=== PATIENT | male | born 1950 | race Two or more races ===

== ENCOUNTER 2017-12-25 18:22 | Emergency (ER) | payer BC, OTHER ==
[~2017-12-25] VITALS: Ht 172.7 cm; Wt 81.6 kg
[2017-12-25 20:27] LABS: Hemoglobin 8.5 g/dL (13.5-17.5); Lymphocytes # (auto) 1.7 uL; Monocytes # (auto) 1.2 uL; Neutrophils % (auto) 80.5 % (37.0-80.0); Red Cell Distribution Width 14.4 % (11.8-14.3)
[2017-12-25 20:30] LABS: Basophils # (auto) 0.1 uL; Basophils % (auto) 0.4 % (0.0-2.0); Eosinophils # (auto) 0 uL; Eosinophils % (auto) 0.3 % (0.0-7.0); Hematocrit 26.3 % (41.0-53.0); Lymphocytes % (auto) 11.1 % (10.0-50.0); Mean Corpuscular Hemoglobin 27.9 pg (28.0-32.0); Mean Corpuscular Hgb Conc. 32.4 g/dL (32.0-36.0); Mean Corpuscular Volume 86.2 fL (80.0-100.0); Monocytes % (auto) 7.7 % (0.0-12.0); Neutrophils # (auto) 12.3 uL; Platelet Count (auto) 531 10^3/uL (140-450); Red Blood Cells 3.05 10^6/uL (4.5-5.90); White Blood Cell 15.2 10^3/uL (4.4-10.8)
[2017-12-25 20:47] LABS: Alanine Aminotransferase 16 U/L (16-61); Anion Gap 11 (5-15); Aspartate Aminotransferase 21 U/L (15-37); BUN/Creatinine Ratio 18.7; Blood Urea Nitrogen 38 mg/dL (7-18); Calcium 8.8 mg/dL (8.5-10.1); Carbon Dioxide 24 mmol/L (21-32); Chloride 99 mmol/L (98-107); GFR African American 42 mL/min; GFR Non-African American 35 mL/min; Glucose 154 mg/dL (74-106); INR 1.1 (0.9-1.15); Partial Thromboplastin Time 32.9 sec (22.64-33.71); Sodium 134 mmol/L (136-145)
[2017-12-25 20:51] LABS: Amylase 37 U/L (25-115); Lipase 129 U/L (73-393)
[2017-12-25 20:52] LABS: Alkaline Phosphatase 282 U/L (45-117); Bilirubin, Total 0.5 mg/dL (0.2-1.0); Total Protein 9.2 g/dL (6.4-8.2)
[2017-12-26] MEDS ORDERED: ONDANSETRON HCL 4 MG/2 ML VIAL IV ONE
[2017-12-26 02:53] VITALS: BP 135/81
[2017-12-26] MEDS ORDERED: MEPERIDINE HCL (25 MG/ML) 1ML VIAL IV ONE ×2 (03:00)
== END 2017-12-26 03:23 | disposition home or self-care (01) ==
LOC: EDBD 18:22 → ER 18:26
DX: C48.1 Malignant neoplasm of specified parts of peritoneum (principal); E11.9 Type 2 diabetes mellitus without complications; Z90.49 Acquired absence of other specified parts of digestive tract
CPT/HCPCS: 36415; 74176; 80053; 82150; 83690; 84484; 85025; 85610; 85730; 93005; 96374; 96375; 96376; 99285; J2175; J2405

== ENCOUNTER 2023-02-27 06:17 | Day surgery (SDC) | payer OTHER ==
[~2023-02-27] VITALS: Ht 172.7 cm; Wt 77.1 kg
[~2023-02-27 06:17] MED LIST: ASPI-543 PO; AUG875T PO; INSU1.2I SC; LISI20TA56 PO; METH2.5T PO
[2023-02-27] MEDS ORDERED: SUCCINYLCHOLINE CHLORIDE 20 MG/ML 10ML VIAL IV ONE (06:51)
[2023-02-27] MEDS ORDERED: ROCURONIUM 10MG/ML 10ML VIAL IV ONE (06:51)
[2023-02-27] MEDS ORDERED: ceFAZolin 1GM/50ML 100 ML IV ONE (06:56)
[2023-02-27] MEDS ORDERED: PROPOFOL 10 MG/ML 20 ML IV ONE (07:09)
[2023-02-27] MEDS ORDERED: fentaNYL CITRATE 100 MCG/2 ML VL ONE (07:09)
[2023-02-27] MEDS ORDERED: MIDAZOLAM HCL 2MG/2ML 2ml VIAL (1mg/ml) ONE (07:09)
[2023-02-27] MEDS ORDERED: ONDANSETRON HCL 4 MG/2 ML VIAL ONE (07:09)
[2023-02-27] MEDS ORDERED: DexAMETHasone SOD PHOS 10MG/1ML VIAL INJ ONE (07:09)
[2023-02-27] MEDS ORDERED: SODIUM CHLORIDE LOCK 10 ML ONE (07:09)
[2023-02-27] MEDS ORDERED: ACCU-CHEK COMFORT CURVE STRIP VI ONE (07:15)
[2023-02-27] MEDS ORDERED: METOCLOPRAMIDE HCL 5MG/ml INJ 2ml VIAL IV PRN (07:15)
[2023-02-27] MEDS ORDERED: HYDROmorphone HCL 2 MG/ML VL/or syr IV PRN ×2 (07:15)
[2023-02-27] MEDS ORDERED: MORPHINE SULFATE INJ 2 MG/ml SYRG IV PRN (07:15)
[2023-02-27 09:30] VITALS: BP 146/72
== END 2023-02-27 09:40 | disposition home or self-care (01) ==
LOC: SUR 06:17
PROVIDERS: ATTEND Urology
DX: N40.1 Benign prostatic hyperplasia with lower urinary tract symptoms (principal); N30.10 Interstitial cystitis (chronic) without hematuria; I12.9 Hypertensive chronic kidney disease with stage 1 through stage 4 chronic kidney disease, or unspecified chronic kidney disease; E11.22 Type 2 diabetes mellitus with diabetic chronic kidney disease; N18.30 Chronic kidney disease, stage 3 unspecified; I72.9 Aneurysm of unspecified site; G62.9 Polyneuropathy, unspecified; Z90.49 Acquired absence of other specified parts of digestive tract; Z79.4 Long term (current) use of insulin; Z79.82 Long term (current) use of aspirin; Z79.899 Other long term (current) drug therapy; Z98.890 Other specified postprocedural states
CPT/HCPCS: 52224; 82962; 88305; 88342; J0330; J0690; J1100; J2250; J2405; J2704; J3010; J7030

== ENCOUNTER 2024-02-23 08:25 | Inpatient (IN) | payer OTHER ==
[~2024-02-23] VITALS: Ht 172.7 cm; Wt 70.9 kg
[2024-02-23 09:58] VITALS: PULSE 80; RESP 15; O2SAT 95
[2024-02-23 09:59] LABS: Urine Bacteria FEW /hpf (None Seen); Urine Blood Negative /uL (Negative); Urine Budding Yeast MODERATE /hpf (None Seen); Urine Clarity Turbid (Clear); Urine Color Colorless (Yellow); Urine Mucus FEW (None Seen); Urine Protein, UAD Negative (Negative); Urine Specific Gravity 1.015 (1.001-1.035); Urine Urobilinogen Normal (Negative); Urine WBC 130 /hpf (0 - 3); Urine WBC Clumps PRESENT /hpf (None Seen); Urine pH 6.5 (5.0-9.0)
[2024-02-23 10:29] LABS: Basophils # (auto) 0 10 ^3/uL (0-0.2); Basophils % (auto) 0.5 % (0.0-2.0); Eosinophils # (auto) 0 10 ^3/uL (0-0.8); Eosinophils % (auto) 0.4 % (0.0-7.0); Hemoglobin 12.4 g/dL (13.5-17.5); Lymphocytes # (auto) 0.6 10 ^3/uL (0.4-5.4); Lymphocytes % (auto) 8.8 % (10.0-50.0); Mean Corpuscular Hemoglobin 32.9 pg (28.0-32.0); Mean Corpuscular Hgb Conc. 33.6 g/dL (32.0-36.0); Mean Corpuscular Volume 98.1 fL (80.0-100.0); Monocytes # (auto) 0.8 10 ^3/uL (0-1.3); Monocytes % (auto) 11.3 % (0.0-12.0); Neutrophils # (auto) 5.4 10 ^3/uL (1.6-8.6); Nucleated Red Blood Cells % 0.1 %; Red Blood Cells 3.77 10^6/uL (4.5-5.90); White Blood Cell 6.9 10^3/uL (4.4-10.8)
[2024-02-23] MEDS: SODIUM CHLORIDE 0.9% 1,000 ML IV ONE (11:14)
[2024-02-23 11:26] VITALS: PULSE 70; RESP 16; O2SAT 98
[2024-02-23 11:31] LABS: Platelet Estimate Decreased
[2024-02-23 12:31] LABS: Chloride 103 mmol/L (98-107); Sodium 133 mmol/L (136-145)
[2024-02-23 12:34] LABS: Anion Gap 5 (5-15); Calcium 9.3 mg/dL (8.5-10.1); Carbon Dioxide 25 mmol/L (20-30)
[2024-02-23 12:39] LABS: Alkaline Phosphatase 104 U/L (46-116); Glucose 177 mg/dL (74-106)
[2024-02-23 12:40] LABS: Potassium 4.9 mmol/L (3.5-5.1)
[2024-02-23 12:41] LABS: Albumin 3.8 g/dL (3.2-4.8); Aspartate Aminotransferase 19 U/L (13-40); Bilirubin, Total 0.5 mg/dL (0.2-1.0); Total Protein 7.8 g/dL (5.7-8.2)
[2024-02-23 12:49] LABS: Alanine Aminotransferase 21 U/L (7-40)
[2024-02-23 12:51] LABS: Blood Urea Nitrogen 23 mg/dL (9-23)
[2024-02-23] MEDS ORDERED: ACETAMINOPHEN 325 MG TAB PO PRN (15:30)
[2024-02-23] MEDS ORDERED: HYDROcodone-ACET 5/325MG TAB PO PRN (15:30)
[2024-02-23] MEDS ORDERED: ONDANSETRON HCL 4 MG/2 ML VIAL IV PRN (15:30)
[2024-02-23] MEDS ORDERED: MORPHINE SULFATE INJ 2 MG/ml SYRG IV PRN ×2 (15:30→20:45)
[2024-02-23] MEDS ORDERED: DOCUSATE SOD 100 MG CAP PO PRN (15:30)
[2024-02-23] MEDS: SODIUM CHLORIDE 0.9% 1,000 ML IV SCH (17:13)
[2024-02-23 19:30] VITALS: PULSE 65; RESP 16; O2SAT 98
[2024-02-23] MEDS ORDERED: NITROGLYCERIN 0.4 MG SL TAB SL PRN (20:45)
[2024-02-23] MEDS: ACYCLOVIR SOD 50MG/ML 800 MG in SODIUM CHL 0.9% 250 ML IV SCH (22:00)
[2024-02-24] VITALS (8 sets, daily range): BP systolic 104–152; BP diastolic 63–91; PULSE 70–87; RESP 16–22; TEMP 79.8–98.7; O2SAT 97–100
[2024-02-24 06:38] LABS: Basophils # (auto) 0 10 ^3/uL (0-0.2); Basophils % (auto) 0.5 % (0.0-2.0); Eosinophils # (auto) 0 10 ^3/uL (0-0.8); Eosinophils % (auto) 0.5 % (0.0-7.0); Hematocrit 34.8 % (41.0-53.0); Hemoglobin 11.9 g/dL (13.5-17.5); Lymphocytes # (auto) 0.6 10 ^3/uL (0.4-5.4); Lymphocytes % (auto) 9.2 % (10.0-50.0); Mean Corpuscular Hemoglobin 33.6 pg (28.0-32.0); Mean Corpuscular Hgb Conc. 34.1 g/dL (32.0-36.0); Mean Corpuscular Volume 98.6 fL (80.0-100.0); Monocytes # (auto) 0.7 10 ^3/uL (0-1.3); Monocytes % (auto) 11.1 % (0.0-12.0); Neutrophils # (auto) 5.1 10 ^3/uL (1.6-8.6); Neutrophils % (auto) 78.7 % (37.0-80.0); Red Blood Cells 3.54 10^6/uL (4.5-5.90); Red Cell Distribution Width 15.7 % (11.8-14.3); White Blood Cell 6.5 10^3/uL (4.4-10.8)
[2024-02-24] MEDS ORDERED: PRED20TA2 PO (06:39)
[2024-02-24] MEDS ORDERED: OXYB10GE TOP (06:39)
[2024-02-24] MEDS ORDERED: ATOR20TA PO (06:39)
[2024-02-24] MEDS ORDERED: TAMS0.4C36 PO (06:39)
[2024-02-24 06:54] LABS: Alanine Aminotransferase 19 U/L (7-40); Albumin 3.3 g/dL (3.2-4.8); Alkaline Phosphatase 92 U/L (46-116); Anion Gap 7 (5-15); Aspartate Aminotransferase 17 U/L (13-40); Blood Urea Nitrogen 19 mg/dL (9-23); Calcium 9.1 mg/dL (8.7-10.4); Carbon Dioxide 29 mmol/L (20-30); Chloride 101 mmol/L (98-107); Glucose 160 mg/dL (74-106); Potassium 4.7 mmol/L (3.5-5.1); Sodium 137 mmol/L (136-145)
[2024-02-24 06:55] LABS: Bilirubin, Total 0.9 mg/dL (0.2-1.0); Total Protein 6.8 g/dL (5.7-8.2)
[2024-02-24] MEDS: cefTRIAXone 1GM/50ML D5W 50 ML IV SCH (09:00)
[2024-02-24] MEDS ORDERED: ENOXAPARIN SOD 40 MG/0.4 ML SYRINGE SC SCH (10:00)
[2024-02-24] MEDS: LACTULOSE 20Gm/30ML SOLN PO PRN (17:26)
[2024-02-24] MEDS ORDERED: DEXTROSE (50%) 50ML SYRG IV PRN (17:45)
[2024-02-24] MEDS: predniSONE 20 MG TAB PO ONE (18:20)
[2024-02-24] MEDS: ACYCLOVIR SOD 50MG/ML 800 MG in SODIUM CHL 0.9% 250 ML IV SCH (18:20)
[2024-02-24] MEDS: InsuLIN REG 1unit/0.01ml Soln (100units/ml) SC SCH (22:00)
[2024-02-24] MEDS: SENNA 8.6 MG TAB PO SCH (22:06)
[2024-02-24] MEDS: ACCU-CHEK COMFORT CURVE STRIP VI SCH (22:06)
[2024-02-25] VITALS (7 sets, daily range): BP systolic 101–139; BP diastolic 60–76; PULSE 64–91; RESP 18–20; TEMP 36.8; O2SAT 97–100
[2024-02-25] MEDS: InsuLIN REG 1unit/0.01ml Soln (100units/ml) SC SCH (06:20)
[2024-02-25] MEDS: TAMSULOSIN HYDROCHLORIDE 0.4 MG CAP PO SCH (09:25)
[2024-02-25] MEDS: predniSONE 20 MG TAB PO SCH (09:25)
[2024-02-25] MEDS: ATORVASTATIN 20 MG TAB PO SCH (09:25)
[2024-02-25] MEDS ORDERED: VALA1TAB PO (14:56)
== END 2024-02-25 18:00 | disposition home health service (06) | DRG 872 ==
LOC: ER 08:25 → EDUNIT# 08:25 → EDBD 08:25 → OVERFLOW 21:39 → WEST WING 23:39
PROVIDERS: ADMIT Nurse Practitioner Family; ATTEND Nurse Practitioner Family
DX: A41.9 Sepsis, unspecified organism (principal); G61.81 Chronic inflammatory demyelinating polyneuritis; B02.7 Disseminated zoster; N39.0 Urinary tract infection, site not specified; E11.9 Type 2 diabetes mellitus without complications; I10 Essential (primary) hypertension; K59.00 Constipation, unspecified; N28.89 Other specified disorders of kidney and ureter; R91.8 Other nonspecific abnormal finding of lung field; R63.4 Abnormal weight loss; E78.5 Hyperlipidemia, unspecified; Z74.01 Bed confinement status; Z85.528 Personal history of other malignant neoplasm of kidney; Z79.52 Long term (current) use of systemic steroids; Z68.23 Body mass index [BMI] 23.0-23.9, adult
CPT/HCPCS: 36415; 71045; 71250; 74176; 76775; 80053; 81001; 82962; 83605; 84484; 85025; 86703; 87040; 93005; 96360; G0378; J1815

== ENCOUNTER 2024-03-08 23:59 | Inpatient (IN) | payer OTHER ==
[~2024-03-08] VITALS: Ht 165.1 cm; Wt 76.5 kg
[~2024-03-08 23:59] MED LIST changes: -ASPI-543 PO; +ATOR20TA PO; -AUG875T PO; +OXYB10GE TOP; +PRED20TA2 PO; +TAMS0.4C36 PO; +VALA1TAB PO
[2024-03-09 00:15] VITALS: PULSE 80; RESP 18; O2SAT 100
[2024-03-09] MEDS: NOREPINEPHRINE 8 MG/250ML KIT 250 ML IV SCH (00:30)
[2024-03-09] MEDS: SODIUM CHLORIDE 0.9% 1,000 ML IVB ONE (00:34)
[2024-03-09 00:46] LABS: Basophils # (auto) 0 10 ^3/uL (0-0.2); Basophils % (auto) 0.1 % (0.0-2.0); Chloride 102 mmol/L (98-107); Eosinophils # (auto) 0.1 10 ^3/uL (0-0.8); Eosinophils % (auto) 0.3 % (0.0-7.0); Hematocrit 33.7 % (41.0-53.0); Hemoglobin 11.2 g/dL (13.5-17.5); Lymphocytes # (auto) 0.9 10 ^3/uL (0.4-5.4); Lymphocytes % (auto) 6.2 % (10.0-50.0); Mean Corpuscular Hemoglobin 33.1 pg (28.0-32.0); Mean Corpuscular Hgb Conc. 33.1 g/dL (32.0-36.0); Monocytes # (auto) 1.7 10 ^3/uL (0-1.3); Monocytes % (auto) 11.6 % (0.0-12.0); Neutrophils # (auto) 12.2 10 ^3/uL (1.6-8.6); Neutrophils % (auto) 81.8 % (37.0-80.0); Nucleated Red Blood Cells % 0.8 %; Potassium 5.2 mmol/L (3.5-5.1); Red Blood Cells 3.37 10^6/uL (4.5-5.90); Red Cell Distribution Width 15.8 % (11.8-14.3); Sodium 127 mmol/L (136-145)
[2024-03-09 00:47] LABS: Anion Gap 11 (5-15); Carbon Dioxide 14 mmol/L (20-30)
[2024-03-09 00:48] LABS: Calcium 8.4 mg/dL (8.7-10.4)
[2024-03-09 00:52] LABS: Glucose 189 mg/dL (74-106)
[2024-03-09 00:53] LABS: BUN/Creatinine Ratio 38.4 (10.0-20.0)
[2024-03-09 00:59] LABS: Blood Urea Nitrogen 101 mg/dL (9-23)
[2024-03-09 01:00] LABS: Lactic Acid w/Reflex 2.7 mmol/L (0.4-2.0)
[2024-03-09] MEDS: NOREPINEPHRINE 8 MG/250ML KIT 250 ML IV ONE (01:07)
[2024-03-09] MEDS: cefTRIAXone 1GM/50ML D5W 50 ML IV ONE (01:15)
[2024-03-09] MEDS: VANCOMYCIN 1GM/200ML 200 ML IV ONE (01:15)
[2024-03-09] MEDS: SODIUM CHLORIDE 0.9% 1,850 ML IV ONE (01:15)
[2024-03-09 02:37] LABS: Urine Bacteria MANY /hpf (None Seen); Urine Blood 1+ /uL (Negative); Urine Clarity Ex.Turbid (Clear); Urine Mucus FEW (None Seen); Urine Protein, UAD 1+ (Negative); Urine Specific Gravity 1.012 (1.001-1.035); Urine Urobilinogen Normal (Negative); Urine WBC 3101 /hpf (0 - 3); Urine WBC Clumps PRESENT /hpf (None Seen); Urine pH 5.5 (5.0-9.0)
[2024-03-09 02:56] LABS: Urine Color Yellow (Yellow)
[2024-03-09] MEDS ORDERED: MORPHINE SULFATE INJ 2 MG/ml SYRG IV PRN (03:30)
[2024-03-09] MEDS ORDERED: DEXTROSE (50%) 50ML SYRG IV PRN (03:30)
[2024-03-09] MEDS ORDERED: ONDANSETRON HCL 4 MG/2 ML VIAL IV PRN (03:30)
[2024-03-09] MEDS ORDERED: VANCOMYCIN PER PHARMACY 0 MG IV SCH ×2 (03:30→16:30)
[2024-03-09] MEDS: SODIUM CHLORIDE 0.9% 1,000 ML IV SCH (03:30)
[2024-03-09] MEDS ORDERED: NITROGLYCERIN 0.4 MG SL TAB SL PRN (03:30)
[2024-03-09] MEDS: SODIUM CHLORIDE 0.9% 1,000 ML IV ONE (04:15)
[2024-03-09] MEDS: ACCU-CHEK COMFORT CURVE STRIP VI SCH (06:18)
[2024-03-09] MEDS: InsuLIN REG 1unit/0.01ml Soln (100units/ml) SC SCH (06:22)
[2024-03-09 06:40] LABS: Chloride 108 mmol/L (98-107); Potassium 5.2 mmol/L (3.5-5.1); Sodium 130 mmol/L (136-145)
[2024-03-09 06:42] LABS: Anion Gap 11 (5-15); BUN/Creatinine Ratio 36.8 (10.0-20.0); Carbon Dioxide 11 mmol/L (20-30); Glucose 236 mg/dL (74-106)
[2024-03-09 06:43] LABS: Calcium 7.8 mg/dL (8.5-10.1)
[2024-03-09 06:46] LABS: Blood Urea Nitrogen 89 mg/dL (9-23)
[2024-03-09 07:04] LABS: Hematocrit 38.7 % (41.0-53.0); Hemoglobin 11.8 g/dL (13.5-17.5); Mean Corpuscular Hemoglobin 32.5 pg (28.0-32.0); Mean Corpuscular Hgb Conc. 30.6 g/dL (32.0-36.0); Mean Corpuscular Volume 106.3 fL (80.0-100.0); Red Blood Cells 3.64 10^6/uL (4.5-5.90); Red Cell Distribution Width 16.8 % (11.8-14.3); White Blood Cell 26.7 10^3/uL (4.4-10.8)
[2024-03-09 07:15] LABS: Basophils % (manual) 0 (0.0-2.0); Blast Cells 0; Eosinophils % (manual) 0 (0-7); Metamyelocytes % 0; Myelocytes % 0; Promyelocytes % 0; Reactive Lymphocytes 0
[2024-03-09 07:28] VITALS: PULSE 85; RESP 15; O2SAT 100
[2024-03-09 09:32] LABS: Band Neutrophils % (manual) 7; Lymphocytes % (manual) 2 (10.0-50.0); Monocytes % (manual) 3 (0-12); Platelet Estimate Adequate
[2024-03-09] MEDS: PANTOPRAZOLE 40 MG/10 ML VIAL INJ IV SCH (09:55)
[2024-03-09] MEDS: SODIUM BICARB 50mEq/50ml Vial 50 ML in SOD CHL 0.45% 1,000 ML IV SCH (10:29)
[2024-03-09] MEDS: CEFEPIME 2GM/50ML NS 50 ML IV SCH (18:30)
[2024-03-09 19:40] VITALS: PULSE 85; RESP 22; O2SAT 100
[2024-03-09] MEDS ORDERED: cefTRIAXone 1GM/50ML D5W 50 ML IV SCH (21:00)
[2024-03-10 05:11] LABS: Basophils # (auto) 0 10 ^3/uL (0-0.2); Basophils % (auto) 0.1 % (0.0-2.0); Eosinophils # (auto) 0 10 ^3/uL (0-0.8); Eosinophils % (auto) 0.1 % (0.0-7.0); Hematocrit 34.4 % (41.0-53.0); Hemoglobin 11.4 g/dL (13.5-17.5); Lymphocytes # (auto) 0.7 10 ^3/uL (0.4-5.4); Lymphocytes % (auto) 4.8 % (10.0-50.0); Mean Corpuscular Hemoglobin 32.8 pg (28.0-32.0); Mean Corpuscular Volume 99.2 fL (80.0-100.0); Monocytes # (auto) 1.7 10 ^3/uL (0-1.3); Monocytes % (auto) 12.2 % (0.0-12.0); Neutrophils # (auto) 11.7 10 ^3/uL (1.6-8.6); Neutrophils % (auto) 82.8 % (37.0-80.0); Nucleated Red Blood Cells % 0.2 %; Red Blood Cells 3.47 10^6/uL (4.5-5.90); Red Cell Distribution Width 15.8 % (11.8-14.3); White Blood Cell 14.1 10^3/uL (4.4-10.8)
[2024-03-10 05:19] LABS: Chloride 115 mmol/L (98-107); Potassium 4.4 mmol/L (3.5-5.1); Sodium 141 mmol/L (136-145)
[2024-03-10 05:20] LABS: Anion Gap 8 (5-15); Carbon Dioxide 18 mmol/L (20-30)
[2024-03-10 05:25] LABS: BUN/Creatinine Ratio 59.9 (10.0-20.0); Glucose 169 mg/dL (74-106)
[2024-03-10 05:27] LABS: Blood Urea Nitrogen 97 mg/dL (9-23)
[2024-03-10 08:24] LABS: INR 1.22 (0.9-1.15); Partial Thromboplastin Time 32.5 SEC (24.5-34.5); Prothrombin Time 12.7 sec (9.3-11.8)
[2024-03-10 08:38] VITALS: PULSE 84; RESP 16; O2SAT 100
[2024-03-10] MEDS ORDERED: IMMU4INJ SC (11:02)
[2024-03-10] MEDS ORDERED: LISI-707 PO (11:02)
[2024-03-10] MEDS ORDERED: MIRT1TAB38 PO (11:02)
[2024-03-10] MEDS ORDERED: OXYB5TAB14 PO (11:02)
[2024-03-10 11:31] LABS: Magnesium 2.3 mg/dL (1.6-2.6)
[2024-03-10 11:32] LABS: Phosphorus 3.5 mg/dL (2.4-5.1)
[2024-03-10] MEDS: VANCOMYCIN 1GM/200ML 200 ML IV ONE (12:08)
[2024-03-10 15:25] LABS: Protein, Urine 36.6 mg/dL (0.0-11.9)
[2024-03-10 15:27] LABS: Creatinine, Urine 21.16 mg/dL (30.0-125.0)
[2024-03-10 20:43] VITALS: PULSE 77; RESP 13; O2SAT 99
[2024-03-11 03:11] LABS: Basophils # (auto) 0 10 ^3/uL (0-0.2); Basophils % (auto) 0.1 % (0.0-2.0); Eosinophils # (auto) 0.1 10 ^3/uL (0-0.8); Eosinophils % (auto) 0.7 % (0.0-7.0); Hematocrit 31.4 % (41.0-53.0); Hemoglobin 10.5 g/dL (13.5-17.5); Lymphocytes # (auto) 0.9 10 ^3/uL (0.4-5.4); Lymphocytes % (auto) 8.6 % (10.0-50.0); Mean Corpuscular Hemoglobin 33.2 pg (28.0-32.0); Mean Corpuscular Hgb Conc. 33.6 g/dL (32.0-36.0); Mean Corpuscular Volume 99.1 fL (80.0-100.0); Monocytes # (auto) 1.3 10 ^3/uL (0-1.3); Monocytes % (auto) 12.6 % (0.0-12.0); Neutrophils # (auto) 8.1 10 ^3/uL (1.6-8.6); Red Blood Cells 3.17 10^6/uL (4.5-5.90); Red Cell Distribution Width 16.2 % (11.8-14.3); White Blood Cell 10.4 10^3/uL (4.4-10.8)
[2024-03-11 03:32] LABS: Alanine Aminotransferase 22 U/L (7-40); Albumin 2.4 g/dL (3.2-4.8); Alkaline Phosphatase 127 U/L (46-116); Anion Gap 7 (5-15); Aspartate Aminotransferase 26 U/L (13-40); BUN/Creatinine Ratio 42.9 (10.0-20.0); Bilirubin, Total 0.6 mg/dL (0.2-1.0); Calcium 8.3 mg/dL (8.7-10.4); Carbon Dioxide 21 mmol/L (20-30); Chloride 114 mmol/L (98-107); Glucose 168 mg/dL (74-106); Potassium 3.9 mmol/L (3.5-5.1); Sodium 142 mmol/L (136-145); Total Protein 5.2 g/dL (5.7-8.2)
[2024-03-11 03:34] LABS: Blood Urea Nitrogen 42 mg/dL (9-23)
[2024-03-11] MEDS: SODIUM BICARB 8.4% 50Meq/50ml SYR Vial IV ONE (05:00)
[2024-03-11 07:30] VITALS: PULSE 64; RESP 14; O2SAT 99
[2024-03-11 09:03] LABS: Hepatitis B Surface Antigen Negative (Negative)
[2024-03-11 09:25] LABS: Hepatitis C Antibody Negative (Negative)
[2024-03-11] MEDS: VANCOMYCIN 1GM/200ML 200 ML IV ONE (10:10)
[2024-03-11] MEDS ORDERED: VANCOMYCIN 750mg/150ml 150 ML IV SCH (13:45)
[2024-03-11] MEDS ORDERED: ENOXAPARIN SOD 100 MG/1 ML SYRINGE SC SCH (15:00)
[2024-03-11] MEDS: HEPARIN DRIP/D5W 100UNITS/ML 250 ML IV SCH (17:43)
[2024-03-11 17:47] LABS: INR 1.13 (0.9-1.15); Partial Thromboplastin Time 31.8 SEC (24.5-34.5); Prothrombin Time 11.9 sec (9.3-11.8)
[2024-03-11 18:05] LABS: Basophils # (auto) 0 10 ^3/uL (0-0.2); Basophils % (auto) 0.1 % (0.0-2.0); Eosinophils # (auto) 0.1 10 ^3/uL (0-0.8); Eosinophils % (auto) 1.1 % (0.0-7.0); Hematocrit 33.5 % (41.0-53.0); Hemoglobin 11.1 g/dL (13.5-17.5); Lymphocytes % (auto) 9.3 % (10.0-50.0); Mean Corpuscular Hemoglobin 32.4 pg (28.0-32.0); Mean Corpuscular Hgb Conc. 33.1 g/dL (32.0-36.0); Mean Corpuscular Volume 97.9 fL (80.0-100.0); Monocytes # (auto) 1.2 10 ^3/uL (0-1.3); Neutrophils # (auto) 8.6 10 ^3/uL (1.6-8.6); Neutrophils % (auto) 78.5 % (37.0-80.0); Nucleated Red Blood Cells % 0.2 %; Red Blood Cells 3.42 10^6/uL (4.5-5.90); Red Cell Distribution Width 16.2 % (11.8-14.3); White Blood Cell 10.9 10^3/uL (4.4-10.8)
[2024-03-11 19:30] VITALS: PULSE 80; RESP 14; O2SAT 99
[2024-03-11 21:09] LABS: INR 1.14 (0.9-1.15); Partial Thromboplastin Time 31.9 SEC (24.5-34.5)
[2024-03-11] MEDS: VANCOMYCIN 750mg/150ml 150 ML IV SCH (22:00)
[2024-03-11] MEDS: ATORVASTATIN 20 MG TAB PO SCH (22:14)
[2024-03-11] MEDS: CEFEPIME 2GM/50ML NS 50 ML IV SCH (22:14)
[2024-03-12 00:01] LABS: INR 1.18 (0.9-1.15); Partial Thromboplastin Time 55.6 SEC (24.5-34.5); Prothrombin Time 12.4 sec (9.3-11.8)
[2024-03-12] MEDS: MELATONIN 5 MG TAB PO ONE (02:12)
[2024-03-12 04:04] LABS: Basophils # (auto) 0 10 ^3/uL (0-0.2); Basophils % (auto) 0.3 % (0.0-2.0); Eosinophils # (auto) 0.2 10 ^3/uL (0-0.8); Eosinophils % (auto) 2.1 % (0.0-7.0); Hematocrit 31.1 % (41.0-53.0); Hemoglobin 10.5 g/dL (13.5-17.5); Lymphocytes # (auto) 1.4 10 ^3/uL (0.4-5.4); Lymphocytes % (auto) 13.2 % (10.0-50.0); Mean Corpuscular Hemoglobin 33.1 pg (28.0-32.0); Mean Corpuscular Hgb Conc. 33.7 g/dL (32.0-36.0); Mean Corpuscular Volume 98.3 fL (80.0-100.0); Monocytes # (auto) 1.4 10 ^3/uL (0-1.3); Neutrophils # (auto) 7.8 10 ^3/uL (1.6-8.6); Neutrophils % (auto) 71.4 % (37.0-80.0); Red Blood Cells 3.16 10^6/uL (4.5-5.90); White Blood Cell 10.9 10^3/uL (4.4-10.8)
[2024-03-12 04:16] LABS: Alanine Aminotransferase 23 U/L (7-40); Albumin 2.2 g/dL (3.2-4.8); Alkaline Phosphatase 109 U/L (46-116); Anion Gap 3 (5-15); Aspartate Aminotransferase 39 U/L (13-40); BUN/Creatinine Ratio 33.8 (10.0-20.0); Bilirubin, Total 0.6 mg/dL (0.2-1.0); Calcium 7.8 mg/dL (8.7-10.4); Carbon Dioxide 26 mmol/L (20-30); Chloride 112 mmol/L (98-107); Glucose 159 mg/dL (74-106); Potassium 3.5 mmol/L (3.5-5.1); Sodium 141 mmol/L (136-145)
[2024-03-12 04:17] LABS: Total Protein 4.8 g/dL (5.7-8.2)
[2024-03-12 04:18] LABS: INR 1.17 (0.9-1.15); Prothrombin Time 12.3 sec (9.3-11.8)
[2024-03-12 04:20] LABS: Blood Urea Nitrogen 23 mg/dL (9-23)
[2024-03-12 07:30] VITALS: PULSE 65; RESP 19; O2SAT 99
[2024-03-12] MEDS: ASPirin 81 mg TAB PO SCH (10:24)
[2024-03-12 11:32] LABS: INR 1.14 (0.9-1.15); Partial Thromboplastin Time 66.1 SEC (24.5-34.5)
[2024-03-12 16:44] VITALS: BP 120/66; PULSE 65; RESP 16; TEMP 98; O2SAT 95
[2024-03-12 17:00] VITALS: BP 120/66; PULSE 65; RESP 18; TEMP 97.5; O2SAT 100
[2024-03-12 18:36] LABS: INR 1.18 (0.9-1.15); Prothrombin Time 12.4 sec (9.3-11.8)
[2024-03-12 18:43] LABS: Partial Thromboplastin Time 81.4 SEC (24.5-34.5)
[2024-03-12 20:00] VITALS: PULSE 75; PULSE 77; RESP 16; O2SAT 99
[2024-03-12 21:00] VITALS: BP 105/59; PULSE 75; RESP 16; TEMP 98.1; O2SAT 99
[2024-03-13] VITALS (8 sets, daily range): BP systolic 101–121; BP diastolic 46–74; PULSE 67–87; RESP 16–19; TEMP 97.4–98.4; O2SAT 96–98
[2024-03-13 06:05] LABS: Basophils # (auto) 0 10 ^3/uL (0-0.2); Basophils % (auto) 0.2 % (0.0-2.0); Eosinophils # (auto) 0.1 10 ^3/uL (0-0.8); Eosinophils % (auto) 2.4 % (0.0-7.0); Hemoglobin 9.5 g/dL (13.5-17.5); Lymphocytes # (auto) 0.9 10 ^3/uL (0.4-5.4); Lymphocytes % (auto) 18.4 % (10.0-50.0); Mean Corpuscular Hemoglobin 33.1 pg (28.0-32.0); Mean Corpuscular Volume 97.5 fL (80.0-100.0); Monocytes # (auto) 0.6 10 ^3/uL (0-1.3); Monocytes % (auto) 11.6 % (0.0-12.0); Neutrophils # (auto) 3.3 10 ^3/uL (1.6-8.6); Neutrophils % (auto) 67.4 % (37.0-80.0); Nucleated Red Blood Cells % 0.2 %; Red Blood Cells 2.87 10^6/uL (4.5-5.90); Red Cell Distribution Width 15.9 % (11.8-14.3)
[2024-03-13 06:16] LABS: INR 1.18 (0.9-1.15); Partial Thromboplastin Time 53.6 SEC (24.5-34.5); Prothrombin Time 12.4 sec (9.3-11.8)
[2024-03-13 06:21] LABS: Anion Gap 3 (5-15); Carbon Dioxide 28 mmol/L (20-30); Chloride 106 mmol/L (98-107); Potassium 3.7 mmol/L (3.5-5.1); Sodium 137 mmol/L (136-145)
[2024-03-13 06:22] LABS: Calcium 7.2 mg/dL (8.5-10.1)
[2024-03-13 06:27] LABS: BUN/Creatinine Ratio 26.7 (10.0-20.0); Blood Urea Nitrogen 16 mg/dL (9-23); Glucose 127 mg/dL (74-106)
[2024-03-13 06:38] LABS: Platelet Estimate Decreased
[2024-03-13] MEDS ORDERED: HEPARIN DRIP/D5W 100UNITS/ML 250 ML IV SCH ×2 (06:45→12:45)
[2024-03-13 12:00] LABS: INR 1.17 (0.9-1.15); Partial Thromboplastin Time 48.1 SEC (24.5-34.5); Prothrombin Time 12.3 sec (9.3-11.8)
[2024-03-14] VITALS (7 sets, daily range): BP systolic 105–136; BP diastolic 54–67; PULSE 62–95; RESP 12–20; TEMP 97.8–99.1; O2SAT 98–100
[2024-03-14 06:04] LABS: Chloride 105 mmol/L (98-107); Potassium 3.7 mmol/L (3.5-5.1); Sodium 135 mmol/L (136-145)
[2024-03-14 06:05] LABS: Anion Gap 0 (5-15); Carbon Dioxide 30 mmol/L (20-30)
[2024-03-14 06:06] LABS: Calcium 7.2 mg/dL (8.7-10.4)
[2024-03-14 06:08] LABS: Basophils # (auto) 0 10 ^3/uL (0-0.2); Basophils % (auto) 0.3 % (0.0-2.0); Eosinophils # (auto) 0.1 10 ^3/uL (0-0.8); Eosinophils % (auto) 2.1 % (0.0-7.0); Hematocrit 27.7 % (41.0-53.0); Hemoglobin 9.3 g/dL (13.5-17.5); Lymphocytes % (auto) 14.5 % (10.0-50.0); Mean Corpuscular Hgb Conc. 33.7 g/dL (32.0-36.0); Mean Corpuscular Volume 97.9 fL (80.0-100.0); Monocytes # (auto) 0.7 10 ^3/uL (0-1.3); Monocytes % (auto) 10.1 % (0.0-12.0); Neutrophils # (auto) 5.1 10 ^3/uL (1.6-8.6); Nucleated Red Blood Cells % 0.1 %; Red Blood Cells 2.83 10^6/uL (4.5-5.90); Red Cell Distribution Width 16.1 % (11.8-14.3)
[2024-03-14 06:10] LABS: BUN/Creatinine Ratio 20.7 (10.0-20.0); Blood Urea Nitrogen 12 mg/dL (9-23); Glucose 82 mg/dL (74-106)
[2024-03-14 06:17] LABS: INR 1.23 (0.9-1.15); Partial Thromboplastin Time 32.2 SEC (24.5-34.5); Prothrombin Time 12.8 sec (9.3-11.8)
[2024-03-14] MEDS ORDERED: CEFEPIME 2GM/50ML NS 50 ML IV SCH (18:00)
[2024-03-14] MEDS: CEFEPIME 2GM/50ML NS 50 ML IV SCH (21:52)
[2024-03-14] MEDS: SACUBITRIL-VALSARTAN 24mg/26mg TAB PO SCH (21:53)
[2024-03-14] MEDS: METOPROLOL TARTRATE 25 MG TAB PO SCH (21:54)
[2024-03-15] VITALS (7 sets, daily range): BP systolic 96–125; BP diastolic 53–93; PULSE 54–74; RESP 17–21; TEMP 97.5–98.4; O2SAT 92–98
[2024-03-15 06:37] LABS: Basophils # (auto) 0 10 ^3/uL (0-0.2); Basophils % (auto) 0.3 % (0.0-2.0); Eosinophils # (auto) 0.1 10 ^3/uL (0-0.8); Eosinophils % (auto) 1.6 % (0.0-7.0); Hemoglobin 9.5 g/dL (13.5-17.5); Lymphocytes # (auto) 1.2 10 ^3/uL (0.4-5.4); Lymphocytes % (auto) 13.1 % (10.0-50.0); Mean Corpuscular Hemoglobin 33.3 pg (28.0-32.0); Mean Corpuscular Hgb Conc. 34.1 g/dL (32.0-36.0); Mean Corpuscular Volume 97.7 fL (80.0-100.0); Monocytes # (auto) 0.7 10 ^3/uL (0-1.3); Monocytes % (auto) 7.7 % (0.0-12.0); Neutrophils # (auto) 7.2 10 ^3/uL (1.6-8.6); Neutrophils % (auto) 77.3 % (37.0-80.0); Red Blood Cells 2.87 10^6/uL (4.5-5.90); Red Cell Distribution Width 16.2 % (11.8-14.3); White Blood Cell 9.4 10^3/uL (4.4-10.8)
[2024-03-15 06:40] LABS: Chloride 102 mmol/L (98-107); Potassium 4.1 mmol/L (3.5-5.1); Sodium 132 mmol/L (136-145)
[2024-03-15 06:41] LABS: Anion Gap 0 (5-15); Calcium 7.1 mg/dL (8.5-10.1); Carbon Dioxide 30 mmol/L (20-30)
[2024-03-15 06:46] LABS: BUN/Creatinine Ratio 19.7 (10.0-20.0); Blood Urea Nitrogen 12 mg/dL (9-23); Glucose 84 mg/dL (74-106)
[2024-03-15] MEDS: SPIRONOLACTONE 25 MG TAB PO SCH (10:56)
[2024-03-16] VITALS (7 sets, daily range): BP systolic 101–126; BP diastolic 55–67; PULSE 41–80; RESP 16–19; TEMP 97.4–98.4; O2SAT 92–99
[2024-03-16] MEDS: ACETAMINOPHEN 325 MG TAB PO PRN (01:16)
[2024-03-16] MEDS ORDERED: ASPI-325 PO (16:52)
[2024-03-16] MEDS ORDERED: SPIR25TA PO (16:52)
[2024-03-16] MEDS ORDERED: SACU1TAB PO (16:52)
[2024-03-16] MEDS ORDERED: MET25T PO (16:52)
[2024-03-16] MEDS ORDERED: ATOR20TA50 PO (16:52)
== END 2024-03-16 21:40 | disposition home health service (06) | DRG 871 ==
LOC: EDBD 23:59 → ER 23:59 → TELE 03-09 03:31 → EEVIPCON 03-09 03:31 → TELE-EAST 03-12 16:05
PROVIDERS: ADMIT Nurse Practitioner Family; ATTEND Internal Medicine
PROC: 06HY33Z Insertion of Infusion Device into Lower Vein, Percutaneous Approach (ICD-10-PCS; principal; 2024-03-09)
DX: A41.9 Sepsis, unspecified organism (principal); G93.41 Metabolic encephalopathy; N17.0 Acute kidney failure with tubular necrosis; R65.21 Severe sepsis with septic shock; I21.A1 Myocardial infarction type 2; I50.23 Acute on chronic systolic (congestive) heart failure; N39.0 Urinary tract infection, site not specified; N13.8 Other obstructive and reflux uropathy; E87.1 Hypo-osmolality and hyponatremia; G61.81 Chronic inflammatory demyelinating polyneuritis; I13.0 Hypertensive heart and chronic kidney disease with heart failure and stage 1 through stage 4 chronic kidney disease, or unspecified chronic kidney disease; E11.42 Type 2 diabetes mellitus with diabetic polyneuropathy; F17.200 Nicotine dependence, unspecified, uncomplicated; I95.9 Hypotension, unspecified; D63.1 Anemia in chronic kidney disease; N40.1 Benign prostatic hyperplasia with lower urinary tract symptoms; E11.22 Type 2 diabetes mellitus with diabetic chronic kidney disease; N18.9 Chronic kidney disease, unspecified; K57.30 Diverticulosis of large intestine without perforation or abscess without bleeding; E87.5 Hyperkalemia; Z85.528 Personal history of other malignant neoplasm of kidney; Z79.899 Other long term (current) drug therapy; Z79.4 Long term (current) use of insulin; Z90.49 Acquired absence of other specified parts of digestive tract; Z79.60 Long term (current) use of unspecified immunomodulators and immunosuppressants; Z90.5 Acquired absence of kidney
CPT/HCPCS: 36415; 36556; 70450; 70551; 71045; 74176; 76775; 80048; 80053; 80202; 81001; 82306; 82570; 82962; 83605; 83735; 84100; 84156; 84300; 84484; 85007; 85025; 85027; 85610; 85730; 86803; 87040; 87086; 87340; 93005; 93306; 96361; 96365; 96368; 97110; 97163; 97530; 99291; C9113; G0378; J0692; J1815

== ENCOUNTER 2024-03-23 17:06 | Emergency (ER) | payer OTHER ==
[~2024-03-23] VITALS: Ht 165.1 cm; Wt 60.3 kg
[~2024-03-23 17:06] MED LIST changes: +ASPI-325 PO; +ATOR20TA50 PO; +IMMU4INJ SC; -LISI20TA56 PO; +MET25T PO; +MIRT1TAB38 PO; -OXYB10GE TOP; +OXYB5TAB14 PO; +SACU1TAB PO; +SPIR25TA PO
[2024-03-23 17:35] LABS: Basophils # (auto) 0.1 10 ^3/uL (0-0.2); Eosinophils # (auto) 0.2 10 ^3/uL (0-0.8); Eosinophils % (auto) 2.3 % (0.0-7.0); Lymphocytes # (auto) 1.1 10 ^3/uL (0.4-5.4); Mean Corpuscular Hemoglobin 33.1 pg (28.0-32.0); Mean Corpuscular Hgb Conc. 33.4 g/dL (32.0-36.0); Monocytes # (auto) 0.6 10 ^3/uL (0-1.3); Monocytes % (auto) 8.9 % (0.0-12.0); Neutrophils # (auto) 5.2 10 ^3/uL (1.6-8.6); Neutrophils % (auto) 71.8 % (37.0-80.0); Nucleated Red Blood Cells % 0.1 %; Red Blood Cells 2.73 10^6/uL (4.5-5.90); Red Cell Distribution Width 17.6 % (11.8-14.3); White Blood Cell 7.2 10^3/uL (4.4-10.8)
[2024-03-23 17:53] LABS: Alanine Aminotransferase 35 U/L (7-40); Albumin 2.2 g/dL (3.2-4.8); Alkaline Phosphatase 192 U/L (46-116); Anion Gap 0 (5-15); Aspartate Aminotransferase 59 U/L (13-40); BUN/Creatinine Ratio 16.1 (10.0-20.0); Bilirubin, Total 0.5 mg/dL (0.2-1.0); Blood Urea Nitrogen 9 mg/dL (9-23); Calcium 7.5 mg/dL (8.5-10.1); Carbon Dioxide 26 mmol/L (20-30); Chloride 107 mmol/L (98-107); Glucose 113 mg/dL (74-106); Potassium 4.8 mmol/L (3.5-5.1); Sodium 133 mmol/L (136-145); Total Protein 4.7 g/dL (5.7-8.2)
[2024-03-23 23:22] VITALS: BP 120/85; PULSE 79; RESP 22; TEMP 98.6; O2SAT 97
== END 2024-03-23 23:22 | disposition home or self-care (01) ==
LOC: EDBD 17:06 → ER 17:06
DX: M25.552 Pain in left hip (principal); I12.9 Hypertensive chronic kidney disease with stage 1 through stage 4 chronic kidney disease, or unspecified chronic kidney disease; E11.22 Type 2 diabetes mellitus with diabetic chronic kidney disease; N18.9 Chronic kidney disease, unspecified; Z98.890 Other specified postprocedural states; Z79.899 Other long term (current) drug therapy; W17.89XA Other fall from one level to another, initial encounter; Y93.89 Activity, other specified; Y92.89 Other specified places as the place of occurrence of the external cause; Y99.8 Other external cause status
CPT/HCPCS: 36415; 73030; 74176; 80053; 82962; 83605; 85025

== ENCOUNTER 2024-04-26 09:40 | Inpatient (IN) | payer OTHER ==
[~2024-04-26] VITALS: Ht 167.6 cm; Wt 68.1 kg
[~2024-04-26 09:40] MED LIST changes: -TAMS0.4C36 PO; +TAMS0.4C39 PO
[2024-04-26] MEDS: SODIUM CHLORIDE 0.9% 500 ML IV ONE (10:40)
[2024-04-26 10:41] LABS: Basophils # (auto) 0 10 ^3/uL (0-0.2); Basophils % (auto) 0.3 % (0.0-2.0); Eosinophils # (auto) 0 10 ^3/uL (0-0.8); Eosinophils % (auto) 0.3 % (0.0-7.0); Hematocrit 30.4 % (41.0-53.0); Hemoglobin 10.1 g/dL (13.5-17.5); Lymphocytes % (auto) 12.5 % (10.0-50.0); Mean Corpuscular Hemoglobin 31.6 pg (28.0-32.0); Mean Corpuscular Hgb Conc. 33.1 g/dL (32.0-36.0); Mean Corpuscular Volume 95.4 fL (80.0-100.0); Monocytes # (auto) 0.7 10 ^3/uL (0-1.3); Monocytes % (auto) 8.4 % (0.0-12.0); Neutrophils # (auto) 6.3 10 ^3/uL (1.6-8.6); Neutrophils % (auto) 78.5 % (37.0-80.0); Red Blood Cells 3.19 10^6/uL (4.5-5.90); Red Cell Distribution Width 16.9 % (11.8-14.3)
[2024-04-26 11:06] LABS: Alanine Aminotransferase 18 U/L (7-40); Albumin 2.6 g/dL (3.2-4.8); Alkaline Phosphatase 103 U/L (46-116); Anion Gap 3 (5-15); Aspartate Aminotransferase 26 U/L (13-40); BUN/Creatinine Ratio 25.4 (10.0-20.0); Blood Urea Nitrogen 16 mg/dL (9-23); Calcium 8.1 mg/dL (8.7-10.4); Carbon Dioxide 28 mmol/L (20-30); Chloride 107 mmol/L (98-107); Glucose 123 mg/dL (74-106); Potassium 4.4 mmol/L (3.5-5.1); Sodium 138 mmol/L (136-145)
[2024-04-26 11:07] LABS: Bilirubin, Total 0.6 mg/dL (0.2-1.0); Total Protein 6.1 g/dL (5.7-8.2)
[2024-04-26] MEDS: IOHEXOL 350 MG/ML 100ML IJ ONE (11:53)
[2024-04-26] MEDS ORDERED: MORPHINE SULFATE INJ 2 MG/ml SYRG IV PRN (14:15)
[2024-04-26] MEDS ORDERED: NITROGLYCERIN 0.4 MG SL TAB SL PRN (14:15)
[2024-04-26 14:35] VITALS: PULSE 87; RESP 12; O2SAT 100
[2024-04-26] MEDS: ENOXAPARIN SOD 60 MG/0.6 ML SYRINGE SC ONE (14:52)
[2024-04-26 16:28] LABS: Urine Bacteria MANY /hpf (None Seen); Urine Blood TRACE /uL (Negative); Urine Clarity Turbid (Clear); Urine Color Colorless (Yellow); Urine Mucus FEW (None Seen); Urine Protein, UAD TRACE (Negative); Urine Specific Gravity 1.025 (1.001-1.035); Urine Urobilinogen Normal (Negative); Urine WBC 128 /hpf (0 - 3); Urine pH 6.5 (5.0-9.0)
[2024-04-26] MEDS: levoFLOXacin 500MG 100 ML IV ONE (17:02)
[2024-04-26 17:30] LABS: COVID19 ANTIGEN SOFIA FIA NEGATIVE (NEGATIVE); Rapid Influenza A Negative (Negative); Rapid Influenza B Negative (Negative)
[2024-04-26] MEDS: ALBUTEROL SULF 2.5 MG/0.5ML(0.5%) NEB SOLN NEB SCH (19:18)
[2024-04-26 19:19] VITALS: PULSE 76; RESP 18; O2SAT 97
[2024-04-26 20:35] VITALS: PULSE 95; RESP 14; O2SAT 97
[2024-04-26] MEDS: SACUBITRIL-VALSARTAN 24mg/26mg TAB PO SCH (22:00)
[2024-04-26] MEDS: METOPROLOL TARTRATE 25 MG TAB PO SCH (22:00)
[2024-04-26 22:06] VITALS: PULSE 92; PULSE 95; RESP 20; O2SAT 100
[2024-04-26] MEDS: BUDESONIDE (INHALATION) 0.5 MG/2 ML NEB NEB SCH (22:06)
[2024-04-26] MEDS: ATORVASTATIN 20 MG TAB PO SCH (22:51)
[2024-04-26] MEDS: methylPREDNISolone SOD SUCC 40 MG/ML VL IV SCH (22:52)
[2024-04-26 23:01] LABS: Lactic Acid w/Reflex 2.6 mmol/L (0.4-2.0)
[2024-04-26 23:10] VITALS: BP 87/51; PULSE 76; RESP 20; O2SAT 100
[2024-04-27] VITALS (9 sets, daily range): BP systolic 137; BP diastolic 85; PULSE 70–96; RESP 12–22; TEMP 97.7; O2SAT 98–100
[2024-04-27 05:54] LABS: Anion Gap 5 (5-15); Carbon Dioxide 27 mmol/L (20-30); Chloride 104 mmol/L (98-107); Potassium 5.2 mmol/L (3.5-5.1); Sodium 136 mmol/L (136-145)
[2024-04-27 05:55] LABS: Calcium 8.5 mg/dL (8.7-10.4)
[2024-04-27 05:57] LABS: Basophils # (auto) 0 10 ^3/uL (0-0.2); Basophils % (auto) 0.1 % (0.0-2.0); Eosinophils # (auto) 0 10 ^3/uL (0-0.8); Hematocrit 30.6 % (41.0-53.0); Hemoglobin 10.1 g/dL (13.5-17.5); Lymphocytes # (auto) 0.4 10 ^3/uL (0.4-5.4); Lymphocytes % (auto) 5.2 % (10.0-50.0); Mean Corpuscular Hemoglobin 31.8 pg (28.0-32.0); Mean Corpuscular Volume 96.4 fL (80.0-100.0); Monocytes # (auto) 0.1 10 ^3/uL (0-1.3); Monocytes % (auto) 1.9 % (0.0-12.0); Neutrophils # (auto) 7.1 10 ^3/uL (1.6-8.6); Neutrophils % (auto) 92.8 % (37.0-80.0); Nucleated Red Blood Cells % 0.1 %; Red Blood Cells 3.18 10^6/uL (4.5-5.90); White Blood Cell 7.7 10^3/uL (4.4-10.8)
[2024-04-27 06:00] LABS: BUN/Creatinine Ratio 19.2 (10.0-20.0); Blood Urea Nitrogen 14 mg/dL (9-23)
[2024-04-27 06:17] LABS: Glucose 228 mg/dL (74-106)
[2024-04-27] MEDS: cefTRIAXone 1GM/50ML D5W 50 ML IV SCH (09:26)
[2024-04-27] MEDS: ASPirin-EC 81 mg tab PO SCH (09:36)
[2024-04-27] MEDS: TAMSULOSIN HYDROCHLORIDE 0.4 MG CAP PO SCH (09:36)
[2024-04-27] MEDS: SPIRONOLACTONE 25 MG TAB PO SCH (09:38)
[2024-04-27] MEDS: MIRTAZAPINE 15 MG PO SCH (09:39)
[2024-04-27] MEDS: OXYBUTYNIN CHL 5 MG TAB PO SCH (09:40)
[2024-04-27] MEDS: AZITHROMYCIN 500MG/ 250ML 250 ML IV SCH (10:14)
[2024-04-27] MEDS: InsuLIN REG 1unit/0.01ml Soln (100units/ml) SC ONE (16:56)
[2024-04-27] MEDS: ACCU-CHEK COMFORT CURVE STRIP VI ONE (16:57)
[2024-04-27] MEDS: DEXTROSE (50%) 50ML SYRG IV ONE (17:16)
[2024-04-28] VITALS (14 sets, daily range): BP systolic 90–142; BP diastolic 52–74; PULSE 21–78; RESP 16–21; TEMP 97.6–98.3; O2SAT 97–100
[2024-04-28] MEDS ORDERED: DEXTROSE (50%) 50ML SYRG IV PRN (06:45)
[2024-04-28] MEDS: ACCU-CHEK COMFORT CURVE STRIP VI SCH (06:54)
[2024-04-28] MEDS: InsuLIN REG 1unit/0.01ml Soln (100units/ml) SC SCH (06:56)
[2024-04-28] MEDS ORDERED: DOXY100C79 PO (12:31)
[2024-04-28] MEDS ORDERED: IPRA0.00 IN (12:31)
[2024-04-29] VITALS (11 sets, daily range): BP systolic 107–138; BP diastolic 53–77; PULSE 62–85; RESP 16–22; TEMP 97.5–98.4; O2SAT 93–100
[2024-04-29 09:01] LABS: Hepatitis B Surface Antigen Negative (Negative)
[2024-04-29 11:49] LABS: Hepatitis C Antibody Negative (Negative)
== END 2024-04-29 16:50 | disposition home health service (06) | DRG 178 ==
LOC: EDBD 09:40 → ER 09:52 → TELE 14:18 → TELE-WESTW 04-27 21:37 → OBSVTOIN 04-28 02:30
PROVIDERS: ADMIT Hospitalist; ATTEND Hospitalist
DX: J15.69 Pneumonia due to other Gram-negative bacteria (principal); E44.1 Mild protein-calorie malnutrition; J47.0 Bronchiectasis with acute lower respiratory infection; J47.1 Bronchiectasis with (acute) exacerbation; J90 Pleural effusion, not elsewhere classified; E11.9 Type 2 diabetes mellitus without complications; D64.9 Anemia, unspecified; I10 Essential (primary) hypertension; E87.5 Hyperkalemia; Z20.822 Contact with and (suspected) exposure to COVID-19; Z74.01 Bed confinement status; Z90.49 Acquired absence of other specified parts of digestive tract; Z82.49 Family history of ischemic heart disease and other diseases of the circulatory system; Z79.899 Other long term (current) drug therapy; Z79.82 Long term (current) use of aspirin; J15.9 Unspecified bacterial pneumonia
CPT/HCPCS: 36415; 71045; 71275; 80048; 80053; 81001; 82962; 83605; 83880; 84132; 84484; 85025; 85379; 86803; 87040; 87340; 87426; 87804; 93005; 94640; 99291; G0378; J1815; J1956